=== PATIENT | female | born 2005 ===

== ENCOUNTER 2024-05-29 12:53 | Emergency (ER) | payer OTHER ==
[~2024-05-29] VITALS: Ht 165.1 cm; Wt 108.9 kg
[2024-05-29] MEDS ORDERED: AMOCLA875 PO (14:52)
== END 2024-05-29 14:54 | disposition home or self-care (01) ==
LOC: ER 12:53
DX: J32.9 Chronic sinusitis, unspecified (principal); F17.290 Nicotine dependence, other tobacco product, uncomplicated; Z59.89 Other problems related to housing and economic circumstances
CPT/HCPCS: 71046; 99283-25